=== PATIENT | male | born 1990 | race Hispanic/Latino ===

== ENCOUNTER 2020-09-24 09:13 | Emergency (ER) | payer SELFPAY ==
[2020-09-24] MEDS ORDERED: EPINEPHrine 1 MG/ML AMP ONE (09:34)
[2020-09-24] MEDS ORDERED: methylPREDNISolone Sod Succ/PF 125 MG/2 ML VIAL ONE (09:35)
[2020-09-24] MEDS ORDERED: diphenhydrAMINE 50 MG/ML VIAL ONE (09:43)
== END 2020-09-24 10:41 | disposition home or self-care (01) ==
LOC: BURERS 09:13
DX: L50.0 Allergic urticaria (principal); Z71.6 Tobacco abuse counseling
CPT/HCPCS: 96372; 96374; 96375; 99406; J0171; J1200; J2930